=== PATIENT | female | born 1980 | race Caucasian/White ===

== ENCOUNTER → 2018-10-15 10:47 | Outpatient (CLI) | payer OTHER, SELFPAY ==
--- NOTE | 2018-10-15 | US_ITS ---
US retroperitoneal limited HISTORY: ITS.REASON: PT HAS HAD LT KIDNEY REMOVED ORDERING PHYSICIAN: David Marino MD PATIENT AGE: 38 years Comparison: None FINDINGS: There has been a prior left nephrectomy. The right kidney is 15 x 7 x 7.5 cm. Multiple right renal cysts are present measuring up to 4 cm in the mid polar region in addition, there is moderate right hydronephrosis. IMPRESSION: Multiple right renal cysts with moderate right hydronephrosis
--- NOTE | 2018-10-15 | US_ITS ---
US OB /maternal detail: INDICATION: ITS.REASON: ANATOMY SCAN ORDERING PHYSICIAN: David Marino MD PATIENT AGE: 38 years TECHNIQUE: ultrasound transabdominal scanning. COMPARISON: No previous relevant studies. FINDINGS: Single viable intrauterine gestation. Cephalic position. Placenta: Anterior placenta grade 1. There is average amount fluid. The cervix appears satisfactory. Closed and measuring 3 cm in length. Complete survey performed and was unremarkable on the submitted images as in PACS. No discrete anomalies identified on survey imaging by technologist. Active fetus. Three-vessel cord with satisfactory umbilical cord insertion. 4- chamber heart noted. Survey of brain & ventricles unremarkable. Face and neck survey unremarkable. Diaphragm and chest views unremarkable. Abdomen: Both kidneys noted and unremarkable. Stomach noted and satisfactory. Spine: Survey of the spine satisfactory with no anomalies identified nor imaged. Both arms and legs noted. Amniotic Fluid: Adequate. Maternal adnexa: No significant findings. Measurements: Average ultrasound age 25w0d. Gestational Age 19w3d. Estimated due date by ultrasound age 0601/28/2019. Estimated weight 772 grams. BPD = 24w5d OFD = 25w2d HC = 24w4d AC = 25w1d FL = 25w3d Growth Percentile= 98 Heart Rate = 152 Cerebellum = 25w1d Humerus = 26w0d HC/AC is 1.10 (1.09-1.26). CI is 75% (70-86%). FL/BPD is 76%. FL/AC is 23%. IMPRESSION: There is a single live fetus present which is in cephalic presentation with an average ultrasound age of 25 weeks and 0 days. All parameters correlate with no obvious anomalies. Estimated weight is 772 g which is 98 percentile which would indicate large for gestational age today if the dates are correct. Please correlate with patient's estimated due date .
[2018-10-15 11:24] LABS: Basophils % 0.1 % (0.1-2.0); Eosinophils # 0.2 K/mm3 (0.0-0.4); Eosinophils % 2.1 % (0.1-12.0); Hematocrit 33.1 % (37.0-47.0); Hemoglobin 10.7 g/dL (12.2-16.2); Lymphocytes # 1.7 K/mm3 (0.7-4.5); Lymphocytes % 21.2 % (10-50); Mean Corpuscular HGB Conc 32.5 g/dL (31.8-35.4); Mean Corpuscular Hemoglobin 31.8 pg (27.0-31.2); Mean Platelet Volume 9.1 fl (7.4-10.4); Monocytes # 0.2 K/mm3 (0.1-1.0); Monocytes % 2.9 % (1.7-9.3); Neutrophils # 5.8 K/mm3 (1.8-7.8); Neutrophils % 73.8 % (37.0-80.0); Platelet Count 209 K/mm3 (142-424); Red Blood Count 3.38 M/mm3 (4.20-5.40); Red Cell Distribution Width 14.1 % (11.5-17.5); White Blood Count 7.9 K/mm3 (4.8-10.8)
[2018-10-15 14:16] LABS: Amphetamine/Metha Screen,Urine Negative ng/mL (<1000); Barbiturates Screen,Urine Negative ng/mL (<200); Benzodiazepines Screen,Urine Negative ng/mL (<200); Cannabinoid Screen,Urine Positive ng/mL (<50); Cocaine Screen,Urine Negative ng/mL (<300); Methadone Screen,Urine Negative ng/mL (<300); Opiate Screen,Urine Negative ng/mL (<300); Phencyclidine Screen,Urine Negative ng/mL (<25)
[2018-10-16 07:14] LABS: HIV Screen 4th Generation wRfx Non Reactive (Non Reactive)
[2018-10-16 09:06] LABS: Hepatitis B Surface Antigen Negative (Negative); Rapid Plasma Reagin Ab Titer Non Reactive (NonRea<1:1); Rubella Antibodies, IgG 1.31 index (Immune >0.99)
== END ==
PROVIDERS: Visit Provider Obstetrics & Gynecology
DX: Z34.90 Encounter for supervision of normal pregnancy, unspecified, unspecified trimester (principal)
CPT/HCPCS: 36415; 76770; 76805; 76811; 80305; 84443; 85025; 86592; 86703; 86762; 86850; 87340; G0432

== ENCOUNTER → 2018-11-25 13:12 | Outpatient (CLI) | payer OTHER, SELFPAY ==
[2018-11-25 14:59] LABS: Basophils % 0.2 % (0.1-2.0); Eosinophils # 0.2 K/mm3 (0.0-0.4); Eosinophils % 2.6 % (0.1-12.0); Hematocrit 31.3 % (37.0-47.0); Hemoglobin 10.6 g/dL (12.2-16.2); Lymphocytes # 1.7 K/mm3 (0.7-4.5); Mean Corpuscular Hemoglobin 32.5 pg (27.0-31.2); Mean Corpuscular Volume 95.7 fl (81-99); Mean Platelet Volume 10.5 fl (7.4-10.4); Monocytes # 0.3 K/mm3 (0.1-1.0); Monocytes % 4.3 % (1.7-9.3); Neutrophils # 5.4 K/mm3 (1.8-7.8); Neutrophils % 70.9 % (37.0-80.0); Platelet Count 208 K/mm3 (142-424); Red Blood Count 3.27 M/mm3 (4.20-5.40); Red Cell Distribution Width 13.1 % (11.5-17.5); White Blood Count 7.6 K/mm3 (4.8-10.8)
[2018-11-25 15:06] LABS: Alanine Aminotransferase 13 U/L (12-78); Anion Gap 14.6 mEq/L (5-15); Aspartate Amino Transferase 7 U/L (15-37); Blood Urea Nitrogen 10 mg/dL (7-18); Calcium 8.5 mg/dL (8.5-10.1); Carbon Dioxide 23 mmol/L (21.0-32.0); Chloride 104 mmol/L (98-107); Creatinine,Serum 1.14 mg/dL (0.55-1.02); Estimated Glomerular Filt Rate 54 ml/min (>60); GFR (African American) 65 ML/MIN (>60); Glucose 97 mg/dL (74-106); Potassium 3.6 mmoL/L (3.5-5.1); Sodium 138 mmol/L (136-145); Uric Acid 6.8 mg/dL (2.6-7.2)
[2018-11-25 15:31] LABS: Glucose 1 Hour 101 mg/dL (74-106)
[2018-11-25 15:50] LABS: D-Dimer 691 ng/mL (0-400)
[2018-11-25 16:45] LABS: Activated Partial Thrombo Time 24.7 seconds (23.6-34.0); Fibrinogen 500 mg/dL (204-500); INR 0.92 (0.9-1.1); Prothrombin Time 9.5 seconds (9.4-11.8)
== END ==
PROVIDERS: Visit Provider Obstetrics & Gynecology
DX: Z34.90 Encounter for supervision of normal pregnancy, unspecified, unspecified trimester (principal)
CPT/HCPCS: 36415; 80048; 82951; 84450; 84460; 84550; 85025; 85378; 85384; 85610; 85730

== ENCOUNTER → 2018-12-09 14:21 | Outpatient (CLI) | payer OTHER, SELFPAY ==
[2018-12-09 20:52] LABS: Total Protein,Urine Random 18.4 mg/dL (0.0-11.9)
[2018-12-09 21:19] LABS: Total Protein 24 Hour,Urine 304 mg/24 hr (40-90); Total Volume,Urine 1650 mL (600-1600)
== END ==
PROVIDERS: Visit Provider Obstetrics & Gynecology
DX: Z34.90 Encounter for supervision of normal pregnancy, unspecified, unspecified trimester (principal)
CPT/HCPCS: 84155

== ENCOUNTER → 2018-12-10 12:48 | Outpatient (CLI) | payer OTHER, SELFPAY ==
[2018-12-10 13:15] LABS: Basophils % 0.1 % (0.1-2.0); Eosinophils # 0.1 K/mm3 (0.0-0.4); Eosinophils % 1.6 % (0.1-12.0); Hematocrit 30.2 % (37.0-47.0); Hemoglobin 10.1 g/dL (12.2-16.2); Lymphocytes # 1.8 K/mm3 (0.7-4.5); Lymphocytes % 23.2 % (10-50); Mean Corpuscular HGB Conc 33.7 g/dL (31.8-35.4); Mean Corpuscular Hemoglobin 32.2 pg (27.0-31.2); Mean Corpuscular Volume 95.7 fl (81-99); Mean Platelet Volume 9.3 fl (7.4-10.4); Monocytes # 0.3 K/mm3 (0.1-1.0); Neutrophils # 5.4 K/mm3 (1.8-7.8); Neutrophils % 71.1 % (37.0-80.0); Platelet Count 213 K/mm3 (142-424); Red Blood Count 3.15 M/mm3 (4.20-5.40); Red Cell Distribution Width 12.9 % (11.5-17.5); White Blood Count 7.6 K/mm3 (4.8-10.8)
[2018-12-10 13:39] LABS: Activated Partial Thrombo Time 23.4 seconds (23.6-34.0); Fibrinogen 500 mg/dL (204-500); INR 0.91 (0.9-1.1); Prothrombin Time 9.5 seconds (9.4-11.8)
[2018-12-10 14:33] LABS: Alanine Aminotransferase 16 U/L (12-78); Anion Gap 16.3 mEq/L (5-15); Aspartate Amino Transferase 12 U/L (15-37); Blood Urea Nitrogen 18 mg/dL (7-18); Calcium 8.7 mg/dL (8.5-10.1); Carbon Dioxide 20 mmol/L (21.0-32.0); Chloride 106 mmol/L (98-107); Creatinine,Serum 1.05 mg/dL (0.55-1.02); Estimated Glomerular Filt Rate 59 ml/min (>60); GFR (African American) 72 ML/MIN (>60); Glucose 87 mg/dL (74-106); Potassium 4.3 mmoL/L (3.5-5.1); Sodium 138 mmol/L (136-145); Uric Acid 7.4 mg/dL (2.6-7.2)
[2018-12-10 15:08] LABS: D-Dimer 673 ng/mL (0-400)
== END ==
PROVIDERS: Visit Provider Obstetrics & Gynecology
DX: Z34.90 Encounter for supervision of normal pregnancy, unspecified, unspecified trimester (principal)
CPT/HCPCS: 36415; 80048; 84450; 84460; 84550; 85025; 85378; 85384; 85610; 85730

== ENCOUNTER 2018-12-13 09:46 | Outpatient (CLI) | payer OTHER, SELFPAY ==
--- NOTE | 2018-12-13 | US_ITS ---
US OB biophysical profile, US OB follow up: Indication: -induced hypertension, preeclampsia, protein in urine ITS.REASON: [facility] ORDERING PHYSICIAN: David Marino MD PATIENT AGE: 38 years COMPARISON: 10/15/2018 FINDINGS: There is a single live fetus which is in cephalic presentation. Facet is anterior and grade 2. The following parameters are obtained: Average ultrasound age is 33w4d. Estimated due date by ultrasound is 01/27/2019. Estimated weight is 2211 BPD: 33w4d OFD: 33w6d HC: 33w3d AC: 33w3d FL: 33w6d heart rate: 142 bpm. HC/AC: 1.02 (0.96-1.11) Cephalic index: 78% (70-86%) FL/BPD: 79% (71-87%) FL/AC: 22% (20-24%) Amniotic fluid index: The amniotic fluid index is 15 cm Qualitative AFV: 2 breathing movements: 2 Gross body movements: 2 Tone: 2 Biophysical profile score: 8/8 Placenta: Anterior Cervix: Appears closed and measures 3 cm IMPRESSION: Single live intrauterine gestation which is in cephalic presentation. Average ultrasound age is 33 weeks 4 days. Biophysical profile is 8 of 8.
[2018-12-13 09:57] VITALS: BP 142/87; PULSE 102; RESP 18; TEMP 36.8; O2SAT 98; BMI 29.5
--- NOTE | 2018-12-13 10:00 | US_ITS ---
US OB biophysical profile, US OB follow up: Indication: -induced hypertension, preeclampsia, protein in urine ITS.REASON: [facility] ORDERING PHYSICIAN: David Marino MD PATIENT AGE: 38 years COMPARISON: 10/15/2018 FINDINGS: There is a single live fetus which is in cephalic presentation. Facet is anterior and grade 2. The following parameters are obtained: Average ultrasound age is 33w4d. Estimated due date by ultrasound is 01/27/2019. Estimated weight is 2211 BPD: 33w4d OFD: 33w6d HC: 33w3d AC: 33w3d FL: 33w6d heart rate: 142 bpm. HC/AC: 1.02 (0.96-1.11) Cephalic index: 78% (70-86%) FL/BPD: 79% (71-87%) FL/AC: 22% (20-24%) Amniotic fluid index: The amniotic fluid index is 15 cm Qualitative AFV: 2 breathing movements: 2 Gross body movements: 2 Tone: 2 Biophysical profile score: 8/8 Placenta: Anterior Cervix: Appears closed and measures 3 cm IMPRESSION: Single live intrauterine gestation which is in cephalic presentation. Average ultrasound age is 33 weeks 4 days. Biophysical profile is 8 of 8.
[2018-12-13 10:25] LABS: Microscopic, Urine URINE MICROSCOPIC (MICROSCOPIC)
[2018-12-13 10:26] LABS: Appearance,Urine SL CLOUDY (Clear); Bilirubin,Urine Negative (Negative); Blood, Urine TRACE-I (Negative); Color,Urine YELLOW (Yellow); Glucose,Urine (UA) Negative (Negative); Ketones,Urine Negative (Negative); Leukocyte Esterase,Urine 2+ (Negative); Nitrate,Urine Negative (Negative); PH,Urine 7.5 (5.0-8.5); Protein,Urine Negative (Negative); Urobilinogen,Urine 0.2 EU/dl (0.2)
[2018-12-13 10:33] LABS: Amphetamine/Metha Screen,Urine Negative ng/mL (<1000); Barbiturates Screen,Urine Negative ng/mL (<200); Benzodiazepines Screen,Urine Negative ng/mL (<200); Cannabinoid Screen,Urine Negative ng/mL (<50); Cocaine Screen,Urine Negative ng/mL (<300); Methadone Screen,Urine Negative ng/mL (<300); Opiate Screen,Urine Negative ng/mL (<300); Phencyclidine Screen,Urine Negative ng/mL (<25)
[2018-12-13 10:41] LABS: Bacteria,Urine 2+ /lpf; WBC,Urine 20-50 #/hpf (0-3)
== END 2018-12-13 13:00 | disposition home or self-care (01) ==
LOC: OBOUT 09:49 → OB 09:50
PROVIDERS: PCP Family Medicine; Visit Provider Obstetrics & Gynecology
DX: O13.3 Gestational [pregnancy-induced] hypertension without significant proteinuria, third trimester (principal); Z3A.33 33 weeks gestation of pregnancy
CPT/HCPCS: 59025; 76816; 76819; 80305; 81001; 87086; 96372

== ENCOUNTER → 2018-12-21 16:23 | Outpatient (CLI) | payer OTHER, SELFPAY ==
[2018-12-21 16:55] LABS: Basophils % 0.2 % (0.1-2.0); Eosinophils # 0.1 K/mm3 (0.0-0.4); Hematocrit 30.3 % (37.0-47.0); Hemoglobin 10.2 g/dL (12.2-16.2); Lymphocytes % 21.4 % (10-50); Mean Corpuscular HGB Conc 33.8 g/dL (31.8-35.4); Mean Corpuscular Hemoglobin 32.1 pg (27.0-31.2); Mean Corpuscular Volume 94.9 fl (81-99); Monocytes # 0.3 K/mm3 (0.1-1.0); Monocytes % 3.7 % (1.7-9.3); Neutrophils # 6.8 K/mm3 (1.8-7.8); Neutrophils % 73.8 % (37.0-80.0); Platelet Count 228 K/mm3 (142-424); Red Blood Count 3.19 M/mm3 (4.20-5.40); Red Cell Distribution Width 13.2 % (11.5-17.5); White Blood Count 9.3 K/mm3 (4.8-10.8)
[2018-12-21 17:28] LABS: Activated Partial Thrombo Time 23.4 seconds (23.6-34.0); Fibrinogen 500 mg/dL (204-500); INR 0.92 (0.9-1.1); Prothrombin Time 9.6 seconds (9.4-11.8)
[2018-12-21 17:38] LABS: D-Dimer 983 ng/mL (0-400)
[2018-12-21 17:52] LABS: Alanine Aminotransferase 22 U/L (12-78); Anion Gap 19.6 mEq/L (5-15); Aspartate Amino Transferase 11 U/L (15-37); Blood Urea Nitrogen 23 mg/dL (7-18); Calcium 8.8 mg/dL (8.5-10.1); Carbon Dioxide 20 mmol/L (21.0-32.0); Chloride 103 mmol/L (98-107); Creatinine,Serum 1.29 mg/dL (0.55-1.02); Estimated Glomerular Filt Rate 47 ml/min (>60); GFR (African American) 57 ML/MIN (>60); Glucose 96 mg/dL (74-106); Potassium 4.6 mmoL/L (3.5-5.1); Sodium 138 mmol/L (136-145); Uric Acid 8.1 mg/dL (2.6-7.2)
== END ==
PROVIDERS: Visit Provider Obstetrics & Gynecology
DX: Z34.90 Encounter for supervision of normal pregnancy, unspecified, unspecified trimester (principal)
CPT/HCPCS: 36415; 80048; 84450; 84460; 84550; 85025; 85378; 85384; 85610; 85730; 86403

== ENCOUNTER → 2018-12-27 13:08 | Outpatient (CLI) | payer OTHER, SELFPAY ==
[2018-12-27 13:29] LABS: Basophils % 0.1 % (0.1-2.0); Eosinophils # 0.1 K/mm3 (0.0-0.4); Eosinophils % 0.9 % (0.1-12.0); Hematocrit 28.1 % (37.0-47.0); Hemoglobin 9.8 g/dL (12.2-16.2); Lymphocytes # 1.5 K/mm3 (0.7-4.5); Lymphocytes % 18.2 % (10-50); Mean Corpuscular HGB Conc 34.8 g/dL (31.8-35.4); Mean Corpuscular Hemoglobin 32.4 pg (27.0-31.2); Mean Platelet Volume 9.5 fl (7.4-10.4); Monocytes # 0.3 K/mm3 (0.1-1.0); Monocytes % 3.5 % (1.7-9.3); Neutrophils # 6.2 K/mm3 (1.8-7.8); Neutrophils % 77.3 % (37.0-80.0); Platelet Count 193 K/mm3 (142-424); Red Blood Count 3.03 M/mm3 (4.20-5.40)
[2018-12-27 14:22] LABS: D-Dimer 1110 ng/mL (0-400)
[2018-12-27 14:36] LABS: Fibrinogen 500 mg/dL (204-500); INR 0.92 (0.9-1.1); Prothrombin Time 9.6 seconds (9.4-11.8)
[2018-12-27 15:18] LABS: Alanine Aminotransferase 23 U/L (12-78); Aspartate Amino Transferase 11 U/L (15-37); Blood Urea Nitrogen 13 mg/dL (7-18); Calcium 8.4 mg/dL (8.5-10.1); Carbon Dioxide 18 mmol/L (21.0-32.0); Chloride 107 mmol/L (98-107); Creatinine,Serum 1.27 mg/dL (0.55-1.02); Estimated Glomerular Filt Rate 48 ml/min (>60); GFR (African American) 58 ML/MIN (>60); Glucose 118 mg/dL (74-106); Sodium 139 mmol/L (136-145); Uric Acid 8.2 mg/dL (2.6-7.2)
== END ==
PROVIDERS: Visit Provider Obstetrics & Gynecology
DX: Z34.90 Encounter for supervision of normal pregnancy, unspecified, unspecified trimester (principal)
CPT/HCPCS: 36415; 80048; 84450; 84460; 84550; 85025; 85378; 85384; 85610; 85730

== ENCOUNTER 2018-12-31 15:34 | Outpatient (CLI) | payer OTHER, SELFPAY ==
[2018-12-31 15:44] VITALS: BP 139/89; PULSE 95; RESP 18; TEMP 36.9; O2SAT 98; BMI 29.5
[2018-12-31 16:46] LABS: Appearance,Urine CLEAR (Clear); Bilirubin,Urine Negative (Negative); Blood, Urine Negative (Negative); Color,Urine YELLOW (Yellow); Glucose,Urine (UA) Negative (Negative); Ketones,Urine Negative (Negative); Leukocyte Esterase,Urine 2+ (Negative); Microscopic, Urine URINE MICROSCOPIC (MICROSCOPIC); Nitrate,Urine Negative (Negative); Protein,Urine Negative (Negative); Urobilinogen,Urine 0.2 EU/dl (0.2)
[2018-12-31 16:55] LABS: Amphetamine/Metha Screen,Urine Negative ng/mL (<1000); Barbiturates Screen,Urine Negative ng/mL (<200); Benzodiazepines Screen,Urine Negative ng/mL (<200); Cannabinoid Screen,Urine Negative ng/mL (<50); Cocaine Screen,Urine Negative ng/mL (<300); Methadone Screen,Urine Negative ng/mL (<300); Opiate Screen,Urine Negative ng/mL (<300); Phencyclidine Screen,Urine Negative ng/mL (<25)
[2018-12-31 17:16] LABS: Bacteria,Urine Trace /lpf
== END 2018-12-31 16:35 | disposition home or self-care (01) ==
LOC: OBOUT 15:35 → OB 15:36
PROVIDERS: Visit Provider Obstetrics & Gynecology
DX: O13.3 Gestational [pregnancy-induced] hypertension without significant proteinuria, third trimester (principal); Z3A.36 36 weeks gestation of pregnancy
CPT/HCPCS: 59025; 80305; 81001; 87086

== ENCOUNTER → 2019-01-08 11:25 | Outpatient (CLI) | payer OTHER, SELFPAY ==
[2019-01-08 11:54] LABS: Basophils % 0.2 % (0.1-2.0); Eosinophils # 0.1 K/mm3 (0.0-0.4); Eosinophils % 1.1 % (0.1-12.0); Hematocrit 29.2 % (37.0-47.0); Hemoglobin 9.6 g/dL (12.2-16.2); Lymphocytes # 1.7 K/mm3 (0.7-4.5); Lymphocytes % 23.1 % (10-50); Mean Corpuscular HGB Conc 32.8 g/dL (31.8-35.4); Mean Corpuscular Hemoglobin 30.5 pg (27.0-31.2); Mean Platelet Volume 10.6 fl (7.4-10.4); Monocytes # 0.3 K/mm3 (0.1-1.0); Monocytes % 3.7 % (1.7-9.3); Neutrophils # 5.3 K/mm3 (1.8-7.8); Neutrophils % 71.8 % (37.0-80.0); Platelet Count 214 K/mm3 (142-424); Red Blood Count 3.13 M/mm3 (4.20-5.40); Red Cell Distribution Width 13.4 % (11.5-17.5); White Blood Count 7.4 K/mm3 (4.8-10.8)
[2019-01-08 12:40] LABS: D-Dimer 1030 ng/mL (0-400)
[2019-01-08 13:02] LABS: Alanine Aminotransferase 15 U/L (12-78); Anion Gap 18.5 mEq/L (5-15); Aspartate Amino Transferase 13 U/L (15-37); Blood Urea Nitrogen 19 mg/dL (7-18); Calcium 8.3 mg/dL (8.5-10.1); Carbon Dioxide 18 mmol/L (21.0-32.0); Chloride 108 mmol/L (98-107); Creatinine,Serum 1.27 mg/dL (0.55-1.02); Estimated Glomerular Filt Rate 48 ml/min (>60); GFR (African American) 58 ML/MIN (>60); Glucose 93 mg/dL (74-106); Potassium 4.5 mmoL/L (3.5-5.1); Sodium 140 mmol/L (136-145); Uric Acid 8.7 mg/dL (2.6-7.2)
[2019-01-08 15:12] LABS: Activated Partial Thrombo Time 25.4 seconds (23.6-34.0); Fibrinogen 500 mg/dL (204-500); INR 0.92 (0.9-1.1); Prothrombin Time 9.6 seconds (9.4-11.8)
== END ==
PROVIDERS: Visit Provider Obstetrics & Gynecology
DX: Z34.90 Encounter for supervision of normal pregnancy, unspecified, unspecified trimester (principal)
CPT/HCPCS: 36415; 80048; 84450; 84460; 84550; 85025; 85378; 85384; 85610; 85730

== ENCOUNTER → 2019-01-17 11:39 | Outpatient (CLI) | payer OTHER, SELFPAY ==
[2019-01-17 13:04] LABS: Alanine Aminotransferase 21 U/L (12-78); Anion Gap 19.2 mEq/L (5-15); Aspartate Amino Transferase 18 U/L (15-37); Blood Urea Nitrogen 20 mg/dL (7-18); Calcium 8.3 mg/dL (8.5-10.1); Carbon Dioxide 16 mmol/L (21.0-32.0); Chloride 108 mmol/L (98-107); Creatinine,Serum 1.38 mg/dL (0.55-1.02); Estimated Glomerular Filt Rate 43 ml/min (>60); GFR (African American) 52 ML/MIN (>60); Glucose 83 mg/dL (74-106); Potassium 4.2 mmoL/L (3.5-5.1); Sodium 139 mmol/L (136-145); Uric Acid 9.3 mg/dL (2.6-7.2)
[2019-01-17 13:12] LABS: Basophils % 0.2 % (0.1-2.0); Eosinophils # 0.1 K/mm3 (0.0-0.4); Eosinophils % 0.8 % (0.1-12.0); Hemoglobin 9.6 g/dL (12.2-16.2); Lymphocytes # 1.8 K/mm3 (0.7-4.5); Lymphocytes % 22.7 % (10-50); Mean Corpuscular Hemoglobin 29.8 pg (27.0-31.2); Mean Platelet Volume 10.1 fl (7.4-10.4); Monocytes # 0.3 K/mm3 (0.1-1.0); Monocytes % 3.8 % (1.7-9.3); Neutrophils # 5.8 K/mm3 (1.8-7.8); Neutrophils % 72.5 % (37.0-80.0); Platelet Count 213 K/mm3 (142-424); Red Blood Count 3.22 M/mm3 (4.20-5.40); Red Cell Distribution Width 13.3 % (11.5-17.5); White Blood Count 7.9 K/mm3 (4.8-10.8)
[2019-01-17 14:48] LABS: Activated Partial Thrombo Time 26.1 seconds (23.6-34.0); Fibrinogen 500 mg/dL (204-500); Prothrombin Time 9.4 seconds (9.4-11.8)
[2019-01-17 15:00] LABS: D-Dimer 1800 ng/mL (0-400)
== END ==
PROVIDERS: Visit Provider Obstetrics & Gynecology
DX: Z34.90 Encounter for supervision of normal pregnancy, unspecified, unspecified trimester (principal)
CPT/HCPCS: 80048; 84450; 84460; 84550; 85025; 85378; 85384; 85610; 85730

== ENCOUNTER 2019-01-20 01:29 | Inpatient (IN) ==
[2019-01-20 05:39] LABS: Microscopic, Urine URINE MICROSCOPIC (MICROSCOPIC)
[2019-01-20 05:41] LABS: Basophils % 0.2 % (0.1-2.0); Eosinophils # 0.1 K/mm3 (0.0-0.4); Eosinophils % 0.6 % (0.1-12.0); Hemoglobin 9.4 g/dL (12.2-16.2); Lymphocytes # 2.3 K/mm3 (0.7-4.5); Lymphocytes % 24.4 % (10-50); Mean Corpuscular HGB Conc 32.5 g/dL (31.8-35.4); Mean Corpuscular Volume 92.3 fl (81-99); Mean Platelet Volume 11.1 fl (7.4-10.4); Monocytes # 0.4 K/mm3 (0.1-1.0); Monocytes % 3.8 % (1.7-9.3); Neutrophils # 6.7 K/mm3 (1.8-7.8); Platelet Count 198 K/mm3 (142-424); Red Blood Count 3.15 M/mm3 (4.20-5.40); Red Cell Distribution Width 13.3 % (11.5-17.5); White Blood Count 9.4 K/mm3 (4.8-10.8)
[2019-01-20 05:50] LABS: Appearance,Urine CLEAR (Clear); Bilirubin,Urine Negative (Negative); Blood, Urine TRACE-I (Negative); Color,Urine YELLOW (Yellow); Glucose,Urine (UA) Negative (Negative); Ketones,Urine Negative (Negative); Leukocyte Esterase,Urine 3+ (Negative); PH,Urine 6.5 (5.0-8.5); Protein,Urine Negative (Negative); Urobilinogen,Urine 0.2 EU/dl (0.2)
[2019-01-20 05:53] LABS: Activated Partial Thrombo Time 24.3 seconds (23.6-34.0); INR 0.92 (0.9-1.1); Prothrombin Time 9.6 seconds (9.4-11.8)
[2019-01-20 05:54] LABS: Basophils % 0.2 % (0.1-2.0); Eosinophils # 0.1 K/mm3 (0.0-0.4); Eosinophils % 0.5 % (0.1-12.0); Hematocrit 30.6 % (37.0-47.0); Lymphocytes # 2.2 K/mm3 (0.7-4.5); Lymphocytes % 26.1 % (10-50); Mean Corpuscular HGB Conc 32.7 g/dL (31.8-35.4); Mean Corpuscular Volume 92.5 fl (81-99); Mean Platelet Volume 10.9 fl (7.4-10.4); Monocytes # 0.3 K/mm3 (0.1-1.0); Monocytes % 3.5 % (1.7-9.3); Neutrophils % 69.7 % (37.0-80.0); Platelet Count 193 K/mm3 (142-424); Red Blood Count 3.31 M/mm3 (4.20-5.40); Red Cell Distribution Width 13.4 % (11.5-17.5); White Blood Count 8.6 K/mm3 (4.8-10.8)
[2019-01-20 05:58] LABS: Anion Gap 15.8 mEq/L (5-15); Calcium 8.3 mg/dL (8.5-10.1); Uric Acid 9.3 mg/dL (2.6-7.2)
[2019-01-20 06:04] LABS: RBC,Urine Occasional #/hpf (0-3)
[2019-01-20 06:07] LABS: Amphetamine/Metha Screen,Urine Negative ng/mL (<1000); Barbiturates Screen,Urine Negative ng/mL (<200); Benzodiazepines Screen,Urine Negative ng/mL (<200); Cannabinoid Screen,Urine Negative ng/mL (<50); Cocaine Screen,Urine Negative ng/mL (<300); Methadone Screen,Urine Negative ng/mL (<300); Opiate Screen,Urine Negative ng/mL (<300); Phencyclidine Screen,Urine Negative ng/mL (<25)
--- NOTE | 2019-01-20 06:24 | Progress Note ---
Internal Medicine - PN: Subj *Date: 01/20/19 *Time: 06:22 Interval history: Obstetrical history is on the chart and up-to-date. This 38-year-old 4, para 3, Ab0 white female, who is status post right nephrectomy in 2017, has exhibited signs and symptoms of preeclampsia. Her current blood pressure is 168/93. DTRs are normal. Her cervix is 3 cm, 50%, with a presenting vertex at -2 station. Bag of water intact. She is currently 38-6/7 weeks of gestation, and is having irregular contractions. The plan is to administer intravenous magnesium sulfate and then augment with intravenous Pitocin, in anticipation of a vaginal delivery. The patient is desirous of a tubal ligation, and papers have been signed. Her current hemoglobin is 9.4 g, but she is clinically stable. Exam Vital signs and Labs for Last 24 Hours: Laboratory Results - last 24 hr 01/20/19 05:28: WBC 8.6, RBC 3.31 L, Hgb 10.0 L, Hct 30.6 L, MCV 92.5, MCH 30.2, MCHC 32.7, RDW 13.4, Plt Count 193, MPV 10.9 H, Neut % (Auto) 69.7, Lymph % (Auto) 26.1, [place] % (Auto) 3.5, Eos % (Auto) 0.5, Baso % (Auto) 0.2, Neut # (Auto) 6.0, Lymph # (Auto) 2.2, [place] # (Auto) 0.3, Eos # (Auto) 0.1, Baso # (Auto) 0.0 01/20/19 05:28: PT 9.6, INR 0.92, APTT 24.3, D-Dimer 1690 H* 01/20/19 05:28: Sodium 136, Potassium 3.8, Chloride 108 H, Carbon Dioxide 16 L, Anion Gap 15.8 H, BUN 16, Creatinine 1.49 H, Estimated Creat Clear 64, Estimated GFR 40 L, Est GFR ( Amer) 48 L, Glucose 93, Uric Acid 9.3 H, Calcium 8.3 L, AST 15, ALT 20 01/20/19 05:28: WBC 9.4, RBC 3.15 L, Hgb 9.4 L, Hct 29.0 L, MCV 92.3, MCH 30.0, MCHC 32.5, RDW 13.3, Plt Count 198, MPV 11.1 H, Neut % (Auto) 71.0, Lymph % (Auto) 24.4, [place] % (Auto) 3.8, Eos % (Auto) 0.6, Baso % (Auto) 0.2, Neut # (Auto) 6.7, Lymph # (Auto) 2.3, [place] # (Auto) 0.4, Eos # (Auto) 0.1, Baso # (Auto) 0.0 01/20/19 05:28: Magnesium 1.4 01/20/19 05:28: Urine Color Yellow, Urine Appearance Clear, Urine pH 6.5, Ur Specific [place] 1.010, Urine Protein Negative, Urine Glucose (UA) Negative, Urine Ketones Negative, Urine Blood Trace-i, Urine Nitrate Negative, Urine Bilirubin Negative, Urine Urobilinogen 0.2, Ur Leukocyte Esterase 3+ A, Urine RBC Occasional, Urine WBC 10-20, Ur Squamous Epith Cells 10-20 01/20/19 05:28: Urine Opiates Screen Negative, Urine Methadone Screen Negative, Ur Barbituates Screen Negative, Ur Phencyclidine Scrn Negative, Ur Amphetamines Screen Negative, U Benzodiazepines Scrn Negative, Urine Cocaine Screen Negative, U Marijuana (THC) Screen Negative I & O for Last 24 hours: Intake & Output 01/17/19 01/18/19 01/19/19 01/20/19 11:59 11:59 11:59 11:59 Weight 170 lb
--- NOTE | 2019-01-20 08:40 | Progress Note ---
Internal Medicine - PN: Subj *Date: 01/20/19 *Time: 08:38 Interval history: Blood pressure is now 136/78. DTRs normal. She is on magnesium sulfate and intravenous Pitocin and is having mild regular contractions. Cervix is 3 cm and 80% effaced. I performed an amniotomy and placed an internal monitor, but there was a fair amount of bright red blood at amniotomy. Patient being observed at this time. Exam Vital signs and Labs for Last 24 Hours: Laboratory Results - last 24 hr 01/20/19 05:28: WBC 8.6, RBC 3.31 L, Hgb 10.0 L, Hct 30.6 L, MCV 92.5, MCH 30.2, MCHC 32.7, RDW 13.4, Plt Count 193, MPV 10.9 H, Neut % (Auto) 69.7, Lymph % (Auto) 26.1, [place] % (Auto) 3.5, Eos % (Auto) 0.5, Baso % (Auto) 0.2, Neut # (Auto) 6.0, Lymph # (Auto) 2.2, [place] # (Auto) 0.3, Eos # (Auto) 0.1, Baso # (Auto) 0.0 01/20/19 05:28: PT 9.6, INR 0.92, APTT 24.3, Fibrinogen 500, D-Dimer 1690 H* 01/20/19 05:28: Sodium 136, Potassium 3.8, Chloride 108 H, Carbon Dioxide 16 L, Anion Gap 15.8 H, BUN 16, Creatinine 1.49 H, Estimated Creat Clear 64, Estimated GFR 40 L, Est GFR ( Amer) 48 L, Glucose 93, Uric Acid 9.3 H, Calcium 8.3 L, AST 15, ALT 20 01/20/19 05:28: WBC 9.4, RBC 3.15 L, Hgb 9.4 L, Hct 29.0 L, MCV 92.3, MCH 30.0, MCHC 32.5, RDW 13.3, Plt Count 198, MPV 11.1 H, Neut % (Auto) 71.0, Lymph % (Auto) 24.4, [place] % (Auto) 3.8, Eos % (Auto) 0.6, Baso % (Auto) 0.2, Neut # (Auto) 6.7, Lymph # (Auto) 2.3, [place] # (Auto) 0.4, Eos # (Auto) 0.1, Baso # (Auto) 0.0 01/20/19 05:28: Blood Type B Positive, Antibody Screen Negative 01/20/19 05:28: Magnesium 1.4 01/20/19 05:28: Urine Color Yellow, Urine Appearance Clear, Urine pH 6.5, Ur Specific [place] 1.010, Urine Protein Negative, Urine Glucose (UA) Negative, Urine Ketones Negative, Urine Blood Trace-i, Urine Nitrate Negative, Urine Bilirubin Negative, Urine Urobilinogen 0.2, Ur Leukocyte Esterase 3+ A, Urine RBC Occasional, Urine WBC 10-20, Ur Squamous Epith Cells 10-20 01/20/19 05:28: Urine Opiates Screen Negative, Urine Methadone Screen Negative, Ur Barbituates Screen Negative, Ur Phencyclidine Scrn Negative, Ur Amphetamines Screen Negative, U Benzodiazepines Scrn Negative, Urine Cocaine Screen Negative, U Marijuana (THC) Screen Negative I & O for Last 24 hours: Intake & Output 01/17/19 01/18/19 01/19/19 01/20/19 11:59 11:59 11:59 11:59 Weight 170 lb
--- NOTE | 2019-01-20 11:23 | Progress Note ---
[facility] Anesthesia Checklist - Patient Identification Patient Identification: Arm Band - Structural Data Admitted From: Home Planned Operative Procedure/s: labor epidural Consent for Planned Operative Procedure(s) Verified: Yes Verified Documents: Surgical Consent, History and Physical - NPO Status Verified Time NPO: 00:00 - Additional verifications Anesthesia Reactions: No - Airway Assessment C-Spine Mobility Assessed: Yes TMJ Mobility Assessed: Yes Dentition: Good Dentition - Neurological Assessment Level of Consciousness: Awake, Alert - Anesthesia Plan Anesthesia Risk discussed: Yes Anesthesia Plan: Verified ASA Class: II Anesthesia Type: Epidural [facility] History I have reviewed the patient's past medical history: Yes *Have you ever received a pneumonia vaccine?: No *Have you received a flu vaccine this season?: No Other Surgeries: No: Amputation: No Fractures: No - *Social History Smoking Status: Former smoker Alcohol Intake: never Alcohol Intake Frequency:: other Substance Use Type: denies use *Occupational Status:: unemployed *Travel in the last 8 weeks: None Family Hx:: No significant family history Para: 3
--- NOTE | 2019-01-20 12:50 | Progress Note ---
Internal Medicine - PN: Subj *Date: 01/20/19 *Time: 12:49 (Epidural is now in situ. Blood pressure is stable. Patient is having moderate, regular contractions. The bleeding which was present that amniotomy has considerably slowed. No decelerations on internal monitor. Cervix now 4 to 5 cm, 90%, with a presenting vertex at -2 station. Impression: Progressing.) Exam Vital signs and Labs for Last 24 Hours: Laboratory Results - last 24 hr 01/20/19 05:28: WBC 8.6, RBC 3.31 L, Hgb 10.0 L, Hct 30.6 L, MCV 92.5, MCH 30.2, MCHC 32.7, RDW 13.4, Plt Count 193, MPV 10.9 H, Neut % (Auto) 69.7, Lymph % (Auto) 26.1, [place] % (Auto) 3.5, Eos % (Auto) 0.5, Baso % (Auto) 0.2, Neut # (Auto) 6.0, Lymph # (Auto) 2.2, [place] # (Auto) 0.3, Eos # (Auto) 0.1, Baso # (Auto) 0.0 01/20/19 05:28: PT 9.6, INR 0.92, APTT 24.3, Fibrinogen 500, D-Dimer 1690 H* 01/20/19 05:28: Sodium 136, Potassium 3.8, Chloride 108 H, Carbon Dioxide 16 L, Anion Gap 15.8 H, BUN 16, Creatinine 1.49 H, Estimated Creat Clear 64, Estimated GFR 40 L, Est GFR ( Amer) 48 L, Glucose 93, Uric Acid 9.3 H, Calcium 8.3 L, AST 15, ALT 20 01/20/19 05:28: WBC 9.4, RBC 3.15 L, Hgb 9.4 L, Hct 29.0 L, MCV 92.3, MCH 30.0, MCHC 32.5, RDW 13.3, Plt Count 198, MPV 11.1 H, Neut % (Auto) 71.0, Lymph % (Auto) 24.4, [place] % (Auto) 3.8, Eos % (Auto) 0.6, Baso % (Auto) 0.2, Neut # (Auto) 6.7, Lymph # (Auto) 2.3, [place] # (Auto) 0.4, Eos # (Auto) 0.1, Baso # (Auto) 0.0 01/20/19 05:28: Blood Type B Positive, Antibody Screen Negative 01/20/19 05:28: Magnesium 1.4 01/20/19 05:28: Urine Color Yellow, Urine Appearance Clear, Urine pH 6.5, Ur Specific [place] 1.010, Urine Protein Negative, Urine Glucose (UA) Negative, Urine Ketones Negative, Urine Blood Trace-i, Urine Nitrate Negative, Urine Bilirubin Negative, Urine Urobilinogen 0.2, Ur Leukocyte Esterase 3+ A, Urine RBC Occasional, Urine WBC 10-20, Ur Squamous Epith Cells 10-20 01/20/19 05:28: Urine Opiates Screen Negative, Urine Methadone Screen Negative, Ur Barbituates Screen Negative, Ur Phencyclidine Scrn Negative, Ur Amphetamines Screen Negative, U Benzodiazepines Scrn Negative, Urine Cocaine Screen Negative, U Marijuana (THC) Screen Negative I & O for Last 24 hours: Intake & Output 01/18/19 01/19/19 01/20/19 01/21/19 11:59 11:59 11:59 11:59 Weight 170 lb
--- NOTE | 2019-01-20 14:31 | Progress Note ---
Internal Medicine - PN: Subj *Date: 01/20/19 *Time: 14:30 (Linda is now completely effaced, 8 cm, with the presenting vertex at +1 station. She has just had her epidural "topped off," and has been having some variable decelerations (cord pattern). Going to do an amnioinfusion and anticipate vaginal delivery. There is minimal bleeding at this time.) Exam Vital signs and Labs for Last 24 Hours: Laboratory Results - last 24 hr 01/20/19 05:28: WBC 8.6, RBC 3.31 L, Hgb 10.0 L, Hct 30.6 L, MCV 92.5, MCH 30.2, MCHC 32.7, RDW 13.4, Plt Count 193, MPV 10.9 H, Neut % (Auto) 69.7, Lymph % (Auto) 26.1, [place] % (Auto) 3.5, Eos % (Auto) 0.5, Baso % (Auto) 0.2, Neut # (Auto) 6.0, Lymph # (Auto) 2.2, [place] # (Auto) 0.3, Eos # (Auto) 0.1, Baso # (Auto) 0.0 01/20/19 05:28: PT 9.6, INR 0.92, APTT 24.3, Fibrinogen 500, D-Dimer 1690 H* 01/20/19 05:28: Sodium 136, Potassium 3.8, Chloride 108 H, Carbon Dioxide 16 L, Anion Gap 15.8 H, BUN 16, Creatinine 1.49 H, Estimated Creat Clear 64, Estimated GFR 40 L, Est GFR ( Amer) 48 L, Glucose 93, Uric Acid 9.3 H, Calcium 8.3 L, AST 15, ALT 20 01/20/19 05:28: WBC 9.4, RBC 3.15 L, Hgb 9.4 L, Hct 29.0 L, MCV 92.3, MCH 30.0, MCHC 32.5, RDW 13.3, Plt Count 198, MPV 11.1 H, Neut % (Auto) 71.0, Lymph % (Auto) 24.4, [place] % (Auto) 3.8, Eos % (Auto) 0.6, Baso % (Auto) 0.2, Neut # (Auto) 6.7, Lymph # (Auto) 2.3, [place] # (Auto) 0.4, Eos # (Auto) 0.1, Baso # (Auto) 0.0 01/20/19 05:28: Blood Type B Positive, Antibody Screen Negative 01/20/19 05:28: Magnesium 1.4 01/20/19 05:28: Urine Color Yellow, Urine Appearance Clear, Urine pH 6.5, Ur Specific [place] 1.010, Urine Protein Negative, Urine Glucose (UA) Negative, Urine Ketones Negative, Urine Blood Trace-i, Urine Nitrate Negative, Urine Bilirubin Negative, Urine Urobilinogen 0.2, Ur Leukocyte Esterase 3+ A, Urine RBC Occasional, Urine WBC 10-20, Ur Squamous Epith Cells 10-20 01/20/19 05:28: Urine Opiates Screen Negative, Urine Methadone Screen Negative, Ur Barbituates Screen Negative, Ur Phencyclidine Scrn Negative, Ur Amphetamines Screen Negative, U Benzodiazepines Scrn Negative, Urine Cocaine Screen Negative, U Marijuana (THC) Screen Negative I & O for Last 24 hours: Intake & Output 01/18/19 01/19/19 01/20/19 01/21/19 11:59 11:59 11:59 11:59 Weight 170 lb
--- NOTE | 2019-01-20 16:06 | Procedure Note ---
- Delivery Note Delivery Date:: 01/20/19 Delivery Time:: 15:44 Anesthesia Type: Epidural Was labor medically induced?: Yes Induction method: per pitocin protocol Gestational age (weeks): 38 (PIH) Infant delivered prior to 39 weeks?: Yes Justification for early elective delivery:: Pre-eclampsia Gender: Male at 1 minute: 8 at 5 minutes: 9 Suction Catheter Type: [place] AF:: bloody Delivery Procedure:: Precipitous spontaneous delivery Placental Delivery Description: Spontaneous (Intact)
--- NOTE | 2019-01-20 16:10 | Progress Note ---
Internal Medicine - PN: Subj *Date: 01/20/19 *Time: 16:06 Interval history: I was called to say that the patient was complete and pushing. I arrived within 5 minutes and the baby had delivered spontaneously/precipitously in bed, out of asepsis. The cord had been clamped and cut. I obtained cord blood, and delivered the placenta spontaneously. Examination revealed the uterus to be clean and involuting well with IV Pitocin running. The baby was at the mother's chest, and doing well. Subsequently the baby was weighed and measured (6 pounds 12 ounces, 19.5 inch's, male infant). There were no lacerations. The rectovaginal septum was intact at the close of the procedure. The sponge and needle counts correct. The estimated blood loss was 350 cc. Patient's blood type is B+. Her rubella titer is immune. She plans to bottlefeed. Because of the lateness of the hour, and the fact that the patient is fatigued, she agrees to have her epidural removed, and undergo her tubal ligation tomorrow morning under spinal anesthesia. This has been scheduled. Exam Vital signs and Labs for Last 24 Hours: Laboratory Results - last 24 hr 01/20/19 05:28: WBC 8.6, RBC 3.31 L, Hgb 10.0 L, Hct 30.6 L, MCV 92.5, MCH 30.2, MCHC 32.7, RDW 13.4, Plt Count 193, MPV 10.9 H, Neut % (Auto) 69.7, Lymph % (Auto) 26.1, [place] % (Auto) 3.5, Eos % (Auto) 0.5, Baso % (Auto) 0.2, Neut # (Auto) 6.0, Lymph # (Auto) 2.2, [place] # (Auto) 0.3, Eos # (Auto) 0.1, Baso # (Auto) 0.0 01/20/19 05:28: PT 9.6, INR 0.92, APTT 24.3, Fibrinogen 500, D-Dimer 1690 H* 01/20/19 05:28: Sodium 136, Potassium 3.8, Chloride 108 H, Carbon Dioxide 16 L, Anion Gap 15.8 H, BUN 16, Creatinine 1.49 H, Estimated Creat Clear 64, Estimated GFR 40 L, Est GFR ( Amer) 48 L, Glucose 93, Uric Acid 9.3 H, Calcium 8.3 L, AST 15, ALT 20 01/20/19 05:28: WBC 9.4, RBC 3.15 L, Hgb 9.4 L, Hct 29.0 L, MCV 92.3, MCH 30.0, MCHC 32.5, RDW 13.3, Plt Count 198, MPV 11.1 H, Neut % (Auto) 71.0, Lymph % (Auto) 24.4, [place] % (Auto) 3.8, Eos % (Auto) 0.6, Baso % (Auto) 0.2, Neut # (Auto) 6.7, Lymph # (Auto) 2.3, [place] # (Auto) 0.4, Eos # (Auto) 0.1, Baso # (Auto) 0.0 01/20/19 05:28: Blood Type B Positive, Antibody Screen Negative 01/20/19 05:28: Magnesium 1.4 01/20/19 05:28: Urine Color Yellow, Urine Appearance Clear, Urine pH 6.5, Ur Specific [place] 1.010, Urine Protein Negative, Urine Glucose (UA) Negative, Urine Ketones Negative, Urine Blood Trace-i, Urine Nitrate Negative, Urine Bilirubin Negative, Urine Urobilinogen 0.2, Ur Leukocyte Esterase 3+ A, Urine RBC Occasional, Urine WBC 10-20, Ur Squamous Epith Cells 10-20 01/20/19 05:28: Urine Opiates Screen Negative, Urine Methadone Screen Negative, Ur Barbituates Screen Negative, Ur Phencyclidine Scrn Negative, Ur Amphetamines Screen Negative, U Benzodiazepines Scrn Negative, Urine Cocaine Screen Negative, U Marijuana (THC) Screen Negative I & O for Last 24 hours: Intake & Output 01/18/19 01/19/19 01/20/19 01/21/19 11:59 11:59 11:59 11:59 Weight 170 lb
[2019-01-20 19:03] LABS: Hematocrit 26.4 % (37.0-47.0)
[2019-01-20 19:04] LABS: Hemoglobin 8.2 g/dL (12.2-16.2)
--- NOTE | 2019-01-21 06:02 | Progress Note ---
Internal Medicine - PN: Subj *Date: 01/21/19 *Time: 06:01 Interval history: This is day #1. The patient is afebrile. Her vital signs are stable. Her magnesium sulfate has been weaned to 1 g an hour. Her blood pressure is 126/72. DTRs are normal. Her hemoglobin is 8.2 g, from an initial 10.0 g, but she is clinically stable. She is scheduled for tubal today. Her magnesium sulfate will be discontinued today. Exam Vital signs and Labs for Last 24 Hours: BP 128/80 01/21/19 00:26 Laboratory Results - last 24 hr 01/20/19 05:28: PT 9.6, INR 0.92, APTT 24.3, Fibrinogen 500, D-Dimer 1690 H* 01/20/19 05:28: Sodium 136, Potassium 3.8, Chloride 108 H, Carbon Dioxide 16 L, Anion Gap 15.8 H, BUN 16, Creatinine 1.49 H, Estimated Creat Clear 64, Estimated GFR 40 L, Est GFR ( Amer) 48 L, Glucose 93, Uric Acid 9.3 H, Calcium 8.3 L, AST 15, ALT 20 01/20/19 05:28: Blood Type B Positive, Antibody Screen Negative 01/20/19 05:28: Urine RBC Occasional, Urine WBC 10-20, Ur Squamous Epith Cells 10-20 01/20/19 05:28: Urine Opiates Screen Negative, Urine Methadone Screen Negative, Ur Barbituates Screen Negative, Ur Phencyclidine Scrn Negative, Ur Amphetamines Screen Negative, U Benzodiazepines Scrn Negative, Urine Cocaine Screen Negative, U Marijuana (THC) Screen Negative 01/20/19 18:50: Hgb 8.2 L D, Hct 26.4 L I & O for Last 24 hours: Intake & Output 01/18/19 01/19/19 01/20/19 01/21/19 11:59 11:59 11:59 11:59 Weight 170 lb Microbiology Reports for the Last 24 Hours: Microbiology 01/20/19 05:28 Urine,Clean Catch Urine Culture - Preliminary NO GROWTH AFTER 24 HOURS
--- NOTE | 2019-01-21 07:12 | Operative Note ---
Date of procedure: 01/21/19 ( day #1. Desire for sterilization.) Pre-op Diagnosis:: Desire for sterilization. Post-op Diagnosis:: Desire for sterilization. Procedure performed:: bilateral tubal ligation. Surgeon:: David Marino MD SHAKER TENDER:: Flakito Jenkins Anesthesia: spinal Estimated blood loss (mL): 10 Operative findings:: involuting uterus; normal fallopian tubes. Operative note:: After the patient was prepped and draped in usual fashion and spinal anesthesia was administered, a semielliptical subumbilical incision was made and taken down through fat and fascia to the peritoneum, which was entered with Metzenbaum scissors. The involuting uterus was encountered. Using a finger sweep, first the right tube, and then the left, was grasped in its midsection and followed out to its fimbriated end, which appeared free. Each ovary appeared normal. The base of the tentative portion of each tube was crushed with a Syl clamp, and ligated with 2-0 Vicryl. The intervening segment of each tube was then excised with Metzenbaum scissors, and the stumps coagulated with the Bovie. There was no undue bleeding. The tubes were allowed to fall back into place. The peritoneum was closed with a running unlocked suture of 2- 0 Vicryl. The fascia was closed with a running unlocked suture of 0 Vicryl. The subcutaneous tissue was closed with a running unlocked suture of 3-0 Vicryl. The skin was closed with a subcuticular suture of 3-0 Vicryl, and appropriately dressed. The sponge and needle counts correct. The estimated blood loss was less than 10 cc. The patient tolerated the procedure well, and was taken to PACU in excellent condition. Condition: stable Disposition: PACU Specimens:: Bilateral fallopian tube segments. Complications:: None.
--- NOTE | 2019-01-21 07:19 | Progress Note ---
[facility] Anesthesia Record Part I Intake, IV Amount: 1,000 Estimated blood loss (mL): 10 Urine output (mL): 0 Blood Pressure: 178/99 SaO2: 98 Pulse Rate: 86 Respiratory Rate: 16 Temperature: 97.7 F Patient is:: Drowsy, Stable Stable to PACU at:: 07:10
--- NOTE | 2019-01-21 07:19 | Progress Note ---
[facility] Anesthesia Record Part II Discharge Time: 07:40 Destination: Obstetric PACU nurse assessment reviewed?: Yes Patient Condition:: Good Anesthesia Complications:: None Swallowing reflex intact?: Yes Cyanosis?: No
[2019-01-21 10:53] LABS: Hematocrit 24.2 % (37.0-47.0)
--- NOTE | 2019-01-21 11:42 | Progress Note ---
Internal Medicine - PN: Subj *Date: 01/21/19 *Time: 11:41 Interval history: This is day of surgery ( tubal ligation). The patient is afebrile. Vital signs stable. Wound clean. Abdomen soft. Uterine fundus is involuting well. She appears pale, but her hemoglobin has not significantly dropped (8.2 g preop; 8.0 g now). I will start her on oral iron 3 times a day. Her mag sulfate has been discontinued and her labetalol has been discontinued. Exam Vital signs and Labs for Last 24 Hours: Temp Pulse Resp BP Pulse Ox 98.2 F 67 16 152/89 H 99 01/21/19 07:45 01/21/19 10:45 01/21/19 10:45 01/21/19 10:45 01/21/19 10:45 Laboratory Results - last 24 hr 01/20/19 18:50: Hgb 8.2 L D, Hct 26.4 L 01/21/19 06:09: POC Glucose 105 01/21/19 10:45: Hgb 8.0 L, Hct 24.2 L 01/21/19 10:45: Magnesium 6.4 H D I & O for Last 24 hours: Intake & Output 01/18/19 01/19/19 01/20/19 01/21/19 11:59 11:59 11:59 11:59 Intake Total 1000 / 1000 Balance 1000 / 1000 Weight 170 lb Microbiology Reports for the Last 24 Hours: Microbiology 01/20/19 05:28 Urine,Clean Catch Urine Culture - Preliminary NO GROWTH AFTER 24 HOURS
[2019-01-22 06:23] VITALS: BP 135/80
--- NOTE | 2019-01-22 08:49 | Progress Note ---
Internal Medicine - PN: Subj *Date: 01/22/19 *Time: 08:48 Interval history: This is day #2 and postop day #1. The patient is afebrile. Her vital signs are stable. Blood pressure 146/72. DTRs normal. Wound clean. Abdomen soft. Lochia normal. Uterine fundus involuting well. Her hemoglobin is 8.0 g, but she is clinically stable. She will be discharged today. Exam Vital signs and Labs for Last 24 Hours: Temp Pulse Resp BP Pulse Ox 98.6 F 82 18 135/80 98 01/22/19 04:48 01/22/19 04:48 01/22/19 04:48 01/22/19 04:48 01/21/19 19:54 Laboratory Results - last 24 hr 01/21/19 10:45: Hgb 8.0 L, Hct 24.2 L 01/21/19 10:45: Magnesium 6.4 H D I & O for Last 24 hours: Intake & Output 01/19/19 01/20/19 01/21/19 01/22/19 11:59 11:59 11:59 11:59 Intake Total 1000 / 1000 Balance 1000 / 1000 Weight 170 lb Microbiology Reports for the Last 24 Hours: Microbiology 01/20/19 05:28 Urine,Clean Catch Urine Culture - Final NO GROWTH AFTER 48 HOURS
--- NOTE | 2019-01-22 08:54 | Discharge Summary ---
General - General Admission date:: 01/20/19 Discharge date: 01/22/19 (This 38-year-old 4, now para 4, Ab0 white female was admitted at 38-6/7 weeks with signs and symptoms of preeclampsia. She was treated with intravenous magnesium sulfate and then her irregular contractions were augmented with intravenous Pitocin. She labeled under labor epidural, which worked well. She went to completion and delivered spontaneously on 01/20/2019 at 1544. The baby was an 8/9, 6 pound 12 ounce, 19.5 inch male , who is bottlefeeding, has been circumcised, and is done well. The following morning, the patient underwent a bilateral tubal ligation under spinal anesthesia, without complications. Her hemoglobin on admission was 10.0 g; it is 8.0 g, but she is clinically stable. She has been started on oral iron. She is not a smoker. She is eating and ambulating, and has had a bowel movement. Her wound is clean. Her abdomen is soft. Her lochia is normal. Her uterine fundus is involuting well. Her blood pressure (off magnesium sulfate and off her labetalol) is 147/72. DTRs are normal. She has required occasional doses of Percocet postoperatively. Her blood type is B+. Her rubella titer is immune. She is discharged home on the second and first postoperative day on iron 3 times a day and vitamins once a day, and on Percocet 5/325 (#20), 1 p.o. every 6 hours as needed pain). She is given appropriate instructions as to diet, exercise and wound care, and she is to return to the office in 2 weeks for follow-up.) Hospital Course Rhogam Administration: Not Indicated Objective Vital signs: Temp Pulse Resp BP Pulse Ox 98.6 F 82 18 135/80 98 01/22/19 04:48 01/22/19 04:48 01/22/19 04:48 01/22/19 04:48 01/21/19 19:54 Results Labs on day of discharge: Labs from last 24 hours 01/21/19 01/21/19 10:45 10:45 Hgb 8.0 L Hct 24.2 L Magnesium 6.4 H D Discharge Plan - Patient Discharge Instructions - Follow up Plan Home Medications: Home Medications Medication Instructions Recorded Confirmed Type Labetalol HCl 100 mg PO TID 01/20/19 01/20/19 History Pediatric Multivit Comb #25/FA 300 mcg PO DAILY 01/20/19 01/20/19 History [[place]stones Multivit Chew Tab] Prescriptions/Medication Reconciliation: No Action Labetalol HCl 100 mg PO TID Pediatric Multivit Comb #25/FA [[place]stones Multivit Chew Tab] 300 mcg PO DAILY
== END 2019-01-22 13:56 | disposition home or self-care (01) | DRG 798 ==
LOC: OB 04:59
PROVIDERS: ADMIT Obstetrics & Gynecology; ATTEND Obstetrics & Gynecology
CPT/HCPCS: 36415; 59025; 80048; 80305; 81001; 82962; 83735; 84450; 84460; 84550; 85014; 85018; 85025; 85378; 85384; 85610; 85730; 86850; 87086; 88302; 94761; C1758; J0131; J2405

== ENCOUNTER → 2021-04-30 14:18 | Outpatient (CLI) | payer OTHER, SELFPAY | PROVIDERS: PCP Emergency Medicine; Visit Provider Nurse Practitioner | DX: Z20.822 Contact with and (suspected) exposure to COVID-19 (principal) | CPT/HCPCS: C9803; U0003; U0005 ==

== ENCOUNTER 2024-02-02 13:37 | Emergency (ER) | payer OTHER, SELFPAY ==
[2024-02-02 13:50] VITALS: BP 172/113; PULSE 100; RESP 20; TEMP 36.8; O2SAT 96; BMI 34.4
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
[2024-02-02 14:38] VITALS: BP 172/113; PULSE 100; RESP 20; TEMP 36.8; O2SAT 96
== END 2024-02-02 14:40 | disposition home or self-care (01) ==
PROVIDERS: Emergency Provider Nurse Practitioner Family
DX: M25.512 Pain in left shoulder (principal); M54.2 Cervicalgia; M62.838 Other muscle spasm
CPT/HCPCS: 99204; 99212; G0463